=== PATIENT | female | born 1985 | race Caucasian/White ===

== ENCOUNTER 2020-05-19 08:38 | Day surgery (SDC) | payer BC ==
[~2020-05-19 08:38] MED LIST: Bupivacaine 0.5%/EPINEPHrine 1:200,000 50 ML MDV ONE; Dexamethasone 4 MG/ML SDV ONE; Glycopyrrolate 0.2 MG/ML 5 ML MDV ONE; Neostigmine Methylsulfate 1 MG/ML 5 ML Syringe ONE; Ondansetron 4 MG/2 ML SDV ONE; Propofol 200 MG/20 ML SDV ONE; Rocuronium 50 MG/5 ML Vial ONE; Succinylcholine 200 MG/10 ML MDV ONE; fentaNYL 250 MCG/5 ML SDV ONE
[2020-05-19] MEDS ORDERED: Albuterol 8 GM Inhaler INH ONE (09:15)
[2020-05-19] MEDS ORDERED: Acetaminophen 500 MG Tab PO ONE (09:15)
[2020-05-19] MEDS: Dextrose 5%-Lactated Ringers 1,000 ML IV SCH ×3 (09:53→21:05)
[2020-05-19] MEDS ORDERED: Sodium Chloride 0.9% 10 ML ONE (10:20)
[2020-05-19] MEDS ORDERED: cefOXitin 2 GM Vial ONE (10:20)
[2020-05-19] MEDS ORDERED: Ketamine 500 MG/5 ML MDV IV SCH (10:30)
[2020-05-19] MEDS ORDERED: Ketamine 50 MG in Sodium Chloride 0.9% 49.5 ML IV SCH (10:30)
[2020-05-19] MEDS ORDERED: fentaNYL 250 MCG/5 ML SDV ONE (10:43)
[2020-05-19] MEDS ORDERED: Labetalol 20 MG/4 ML Syringe ONE (11:06)
[2020-05-19] MEDS ORDERED: hydrOXYzine HCL 100 MG/2 ML SDV IM ONE (11:35)
[2020-05-19] MEDS ORDERED: fentaNYL 100 MCG/2 ML SDV IVPUSH ONE (11:36)
[2020-05-19] MEDS ORDERED: Albuterol 8 GM Inhaler INH PRN (13:18)
[2020-05-19] MEDS ORDERED: Ondansetron 4 MG/2 ML SDV IVPUSH PRN (14:00)
[2020-05-19] MEDS ORDERED: HYDROmorphone 1 MG/ML Syringe IV PRN (14:00)
[2020-05-19] MEDS: HYDROmorphone 0.5 MG/0.5 ML Syringe IVPUSH PRN ×2 (14:39→17:34)
[2020-05-19] MEDS ORDERED: Pantoprazole 40 MG Vial IV SCH (16:00)
[2020-05-19] MEDS: cefOXitin 2 GM in Sodium Chloride 0.9% 50 ML IV SCH ×2 (16:41→22:28)
[2020-05-19] MEDS: risperiDONE 1 MG Tab PO SCH (20:59)
[2020-05-19] MEDS: Acetaminophen/HYDROcodone 325-5 MG Tab PO PRN (21:04)
[2020-05-20] MEDS: Acetaminophen/HYDROcodone 325-5 MG Tab PO PRN ×2 (03:34→07:54)
[2020-05-20] MEDS: cefOXitin 2 GM in Sodium Chloride 0.9% 50 ML IV SCH (03:35)
[2020-05-20] MEDS: risperiDONE 1 MG Tab PO SCH ×2 (07:54→09:45)
--- NOTE | 2020-05-21 10:39 | DISCH ---
FINAL DIAGNOSES: 1. Biliary dyskinesia. 2. Marked fatty infiltration of liver. SECONDARY DIAGNOSES: 1. History of asthma. 2. History of irritable bowel disorder. 3. Generalized anxiety disorder. OPERATIVE PROCEDURES: Done on 05/19/2020, diagnostic laparoscopy with: 1. Cholecystectomy. 2. Wedge liver biopsy. SUMMARY: This is a 34-year-old presenting with some ongoing discomfort in the right upper quadrant, particularly in the postprandial period. A CCK-stimulated HIDA scan was obtained which showed minimal filling of the gallbladder consistent with an ongoing cholecystitis. On the day of admission, the patient underwent a laparoscopic cholecystectomy. She was also noted to have a marked fatty infiltration of liver. A wedge biopsy of liver was obtained for histologic evaluation as well. Postoperatively, no major problems were noted overnight. She was eating well and switched over to Goree for pain. Labs looked good this morning and she will be discharge to home. Follow up will be with Jennifer Smith at [facility] on 05/29/2020 and she will be on a regular diet. She will be on her usual medications plus Goree 5/325, 1 or 2 tabs q.6 hours p.r.n. pain, #40. /[id number]
--- NOTE | 2020-05-30 14:06 | OR ---
DATE OF PROCEDURE: 05/19/2020 SURGEON: Leobardo Traylor MD PREOPERATIVE DIAGNOSIS: Biliary dyskinesia. POSTOPERATIVE DIAGNOSES: 1. Biliary dyskinesia. 2. Markedly fatty infiltrated liver. OPERATIVE PROCEDURE: Diagnostic laparoscopy with: 1. Cholecystectomy (42112). 2. Wedge biopsy of left lobe of liver (52913). ANESTHESIA: General. INSTRUMENT MAKER AND REPAIRER: Jennifer Smith PA-C INDICATION FOR PROCEDURE: This is a 34-year-old status post several episodes of right upper quadrant discomfort. Further workup included CCK-stimulated HIDA scan which showed a very minimally filling gallbladder consistent with biliary dyskinesia. Plan is to proceed with laparoscopic cholecystectomy. Potential risks including bleeding, infection, injury to underlying viscera such as the common bile duct, possibility of stones migrating into the common bile duct requiring additional treatment for correction were all reviewed, and the patient wishes to proceed. DETAILS OF PROCEDURE: The patient was taken to the operative room and placed in a supine position. After general endotracheal anesthesia was induced, the abdomen was prepped and draped. A transverse subumbilical incision was made and the peritoneal cavity entered under direct vision with an Optiview trocar, inflated to 15 mmHg pressure of CO2. Laparoscope was then reinserted. There were no underlying trocar insertion site injuries seen. Following this, a 12 mm epigastric trocar was placed along with a 5 mm right abdominal trocar and the upper abdomen examined. The patient was noted to have a quite firm and grossly fatty infiltrated liver. Initial attempts at needle biopsy were such that the needle upon its deployment simply was pushing the liver away. Given this, we elected at this point to proceed with a wedge biopsy using Harmonic Scalpel of the lower medial edge of the left lobe of the liver, and this specimen was then sent as a separate histologic specimen. The gallbladder was quite distended and edematous and retracted anteriorly and laterally. Dissection began on the gallbladder neck, continued around the gallbladder neck and cystic duct junction. Once that area along with the adjacent cystic artery were well delineated, they both were taken with surgical newton and the gallbladder then dissected off the gallbladder bed using Harmonic scalpel and delivered through the epigastric trocar site and noted to contain some sludge and small stones within it. The area of dissection was then inspected, no bleeding or bile leaks were seen. Jadiel- Bauer drain was taken out through the right lateral trocar site and positioned adjacent to the area of the liver biopsy and gallbladder bed. The trocars were then sequentially removed and the peritoneal cavity deflated. The fascia at the level of 12 mm sites was closed with 0 Vicryl stitch and the skin with 4-0 Vicryl subcuticular stitch. Bilateral transversus abdominis plane blocks had also been placed and wound was anesthetized with some 0.5% Marcaine. The patient was taken to the recovery room in satisfactory condition. Physician rehab care assistant, Jennifer Smith, played an essential role in assisting in this case, helping to position the patient, retract structures as needed, as well as suturing and cutting sutures when indicated. Her presence improved patient safety and decreased operative time. Leobardo Traylor MD /[id number]
== END 2020-05-20 09:30 | disposition home or self-care (01) ==
LOC: JP.SDS 08:38 → JP.MS 11:25 → JP.SDS 05-20 09:30
PROVIDERS: ATTEND Surgery
DX: K81.1 Chronic cholecystitis (principal); K73.9 Chronic hepatitis, unspecified; U07.1 COVID-19; R19.7 Diarrhea, unspecified; F17.210 Nicotine dependence, cigarettes, uncomplicated; K76.0 Fatty (change of) liver, not elsewhere classified; F41.1 Generalized anxiety disorder; E66.9 Obesity, unspecified; Z87.19 Personal history of other diseases of the digestive system; Z79.899 Other long term (current) drug therapy
CPT/HCPCS: 36415; 80053; 81025; 82247; 83735; 84075; 84100; 85027; 88304; 88307; A9270-GY; C9113; J0171; J0330; J0694; J1100; J1170; J2405; J2704; J2710; J2795; J3010; J3410; J3490; J7050; J7121; U0002

== ENCOUNTER 2020-12-18 08:31 | Emergency (ER) | payer BC ==
[2020-12-18] MEDS ORDERED: Albuterol/Ipratropium 3.0-0.5 MG/3 ML Neb Soln NEB ONE (09:14)
--- NOTE | 2020-12-18 09:20 | EDM.PDOC ---
ED HPI GENERAL MEDICAL PROBLEM - General Chief Complaint: Respiratory Problem Stated Complaint: SHORTNESS OF BREATH, HIGH PULSE Time Seen by Provider: 12/18/20 09:06 Source of Information: Reports: Patient, Family, RN Notes Reviewed History Limitations: Reports: No Limitations - History of Present Illness INITIAL COMMENTS - FREE TEXT/NARRATIVE: 34-year-old female presents emergency department with a complaint of shortness of breath, she states she has been short of breath for about a week she has had high pulses well dry cough. Does take risperidone for her mental health. Has had problems with potassium in the past which has influenced her breathing. No fevers no nausea vomiting no chest pain. - Related Data Allergies Allergy/AdvReac Type Severity Reaction Status Date / Time No Known Allergies Allergy Verified 12/18/20 08:44 Home Meds: Home Meds Albuterol Sulfate [Proair Hfa] 1 - 2 puff IH Q4H PRN 05/17/20 [History] Multivitamin [Multi-Vitamin Daily] 1 each PO DAILY 05/17/20 [History] Potassium Chloride 20 meq PO BIDMEALS 05/17/20 [History] risperiDONE [Risperdal] 2 mg PO BID 05/17/20 [History] Pantoprazole Sodium [Protonix] 20 mg PO BID 12/18/20 [History] Past Medical History Respiratory History: Reports: Other (See Below) Other Respiratory History: difficulty breathing with masks Gastrointestinal History: Reports: Cholelithiasis, GERD PROJECT CONTROL ANALYST History: Reports: Polycystic Ovaries Psychiatric History: Reports: Bipolar - Infectious Disease History Infectious Disease History: Reports: Other (See Below) Other Infectious Disease History: was COVID positive april - Past Surgical History Respiratory Surgical History: Reports: None GI Surgical History: Reports: Cholecystectomy Other Female Surgeries/Procedures: left tube removed when 24 Social & Family History - Family History Family Medical History: No Pertinent Family History - Tobacco Use Tobacco Use Status *Q: Current Every Day Tobacco User Years of Tobacco use: 23 Packs/Tins Daily: 0.5 - Caffeine Use Caffeine Use: Reports: Coffee, Soda - Recreational Drug Use Recreational Drug Use: No ED ROS GENERAL - Review of Systems Review Of Systems: See Below Constitutional: Reports: No Symptoms HEENT: Reports: No Symptoms Respiratory: Reports: Shortness of Breath, Cough Cardiovascular: Reports: No Symptoms GI/Abdominal: Reports: No Symptoms : Reports: No Symptoms Musculoskeletal: Reports: No Symptoms ED EXAM, GENERAL - Physical Exam Exam: See Below Exam Limited By: No Limitations General Appearance: Alert, WD/WN, No Apparent Distress Respiratory/Chest: No Respiratory Distress, Lungs Clear, Normal Breath Sounds, No Accessory Muscle Use, Chest Non-Tender Cardiovascular: Regular Rate, Rhythm, No Murmur GI/Abdominal: Soft, Non-Tender Course - Vital Signs Last Recorded V/S: Last Vital Signs Temp 98.0 F 12/18/20 08:43 Pulse 94 12/18/20 09:31 Resp 18 12/18/20 08:43 BP 119/50 L 12/18/20 08:43 Pulse Ox 97 12/18/20 08:43 - Orders/Labs/Meds Orders: Active Orders 24 hr Category Date Time Status RT Aerosol Therapy [RC] ASDIRECTED Care 12/18/20 09:14 Active Chest 2V [CR] Urgent Exams 12/18/20 09:12 Taken Labs: Laboratory Tests 12/18/20 12/18/20 12/18/20 Range/Units 09:27 09:27 09:27 WBC 6.9 (4.5-11.0) K/uL RBC 3.53 (3.30-5.50) M/uL Hgb 9.6 L (12.0-15.0) g/dL Hct 30.6 L (36.0-48.0) % MCV 87 (80-98) fL MCH 27 (27-31) pg MCHC 31 L (32-36) % Plt Count 336 (150-400) K/uL Neut % (Auto) 53.9 (36-66) % Lymph % (Auto) 29.8 (24-44) % [place] % (Auto) 10.5 H (2-6) % Eos % (Auto) 5.5 H (2-4) % Baso % (Auto) 0.3 (0-1) % D-Dimer, Quantitative 329.26 (0.0-500.0) ng/mL Sodium 143 (140-148) mmol/L Potassium 3.6 (3.6-5.2) mmol/L Chloride 109 H (100-108) mmol/L Carbon Dioxide 18 L (21-32) mmol/L Anion Gap 19.6 H (5.0-14.0) mmol/L BUN 20 H D (7-18) mg/dL Creatinine 0.9 (0.6-1.0) mg/dL Est Cr Clr Drug Dosing 69.00 mL/min Estimated GFR (MDRD) > 60 (>60) Glucose 96 (74-106) mg/dL Lactic Acid (0.4-2.0) mmol/L Calcium 8.4 L (8.5-10.1) mg/dL Total Bilirubin 0.3 D (0.2-1.0) mg/dL AST 58 H D (15-37) U/L ALT 30 (12-78) U/L Alkaline Phosphatase 71 (46-116) U/L Troponin I < 0.017 (0.000-0.056) ng/mL Total Protein 6.4 (6.4-8.2) g/dL Albumin 3.0 L (3.4-5.0) g/dL Globulin 3.4 (2.3-3.5) g/dL Albumin/Globulin Ratio 0.9 L (1.2-2.2) 12/18/20 Range/Units 09:27 WBC (4.5-11.0) K/uL RBC (3.30-5.50) M/uL Hgb (12.0-15.0) g/dL Hct (36.0-48.0) % MCV (80-98) fL MCH (27-31) pg MCHC (32-36) % Plt Count (150-400) K/uL Neut % (Auto) (36-66) % Lymph % (Auto) (24-44) % [place] % (Auto) (2-6) % Eos % (Auto) (2-4) % Baso % (Auto) (0-1) % D-Dimer, Quantitative (0.0-500.0) ng/mL Sodium (140-148) mmol/L Potassium (3.6-5.2) mmol/L Chloride (100-108) mmol/L Carbon Dioxide (21-32) mmol/L Anion Gap (5.0-14.0) mmol/L BUN (7-18) mg/dL Creatinine (0.6-1.0) mg/dL Est Cr Clr Drug Dosing mL/min Estimated GFR (MDRD) (>60) Glucose (74-106) mg/dL Lactic Acid 0.6 (0.4-2.0) mmol/L Calcium (8.5-10.1) mg/dL Total Bilirubin (0.2-1.0) mg/dL AST (15-37) U/L ALT (12-78) U/L Alkaline Phosphatase (46-116) U/L Troponin I (0.000-0.056) ng/mL Total Protein (6.4-8.2) g/dL Albumin (3.4-5.0) g/dL Globulin (2.3-3.5) g/dL Albumin/Globulin Ratio (1.2-2.2) Meds: Medications Discontinued Medications Generic Name Dose Route Start Last Admin Trade Name Freq PRN Reason Stop Dose Admin Albuterol/Ipratropium 3 ml 12/18/20 09:14 12/18/20 09:30 Albuterol/Ipratropium 3.0-0.5 Mg/3 Ml Neb Soln NEB 12/18/20 09:15 3 ml ONETIME ONE Administration Departure - Departure Time of Disposition: 10:41 Disposition: Home, Self-Care 01 Condition: Fair Clinical Impression: Dyspnea Qualifiers: Dyspnea type: shortness of breath Qualified Code(s): R06.02 - Shortness of breath; R06.00 - Dyspnea, unspecified; R06.01 - Orthopnea - Discharge Information Instructions: Shortness of Breath, Adult, [id number] Referrals: Wale Tripp LIGHT ARMORED RECONNAISSANCE OFFICER [Primary Care Provider] - Forms: ED Department Discharge Additional Instructions: Please keep your follow-up appointment in the clinic this morning Sepsis Event Note (ED) - Evaluation Sepsis Screening Result: No Definite Risk - Focused Exam Vital Signs: Vital Signs Temp Pulse Resp BP Pulse Ox 12/18/20 09:31 94 12/18/20 08:43 98.0 F 101 H 18 119/50 L 97 - My Orders Last 24 Hours: My Active Orders 12/18/20 09:12 Chest 2V [CR] Urgent 12/18/20 09:14 RT Aerosol Therapy [RC] ASDIRECTED - Assessment/Plan Last 24 Hours: My Active Orders 12/18/20 09:12 Chest 2V [CR] Urgent 12/18/20 09:14 RT Aerosol Therapy [RC] ASDIRECTED Plan: Assessment Acuity = acute Site and laterality = dyspnea Etiology = unknown suspicious for risperidone involvement Manifestations = none Location of injury = Home Lab values = CBC reveals a hemoglobin 9.6 consistent normochromic anemia CMP unremarkable lactic acid normal 0.6 D-dimer was normal 329 troponin was negative chest x-ray I did review films myself I cannot appreciate any acute process, the official read from radiology is pending Plan She does have follow-up appointment with her primary care at 11:00 today will have her follow-up for further evaluation consider dosing changing in risperidone This note was dictated using [employer] voice recognition software please call with any questions on syntax or grammar.
--- NOTE | 2020-12-18 11:46 | CR ---
CHEST: 2 view CLINICAL HISTORY:SOB COMPARISON:None FINDINGS: The heart size, pulmonary vascularity and hilar structures are normal. No infiltrate effusion or pneumothorax is seen. IMPRESSION: No acute cardiopulmonary process.
== END 2020-12-18 11:15 | disposition home or self-care (01) ==
LOC: JP.ED 08:31
DX: R06.02 Shortness of breath (principal); K21.9 Gastro-esophageal reflux disease without esophagitis; Z72.0 Tobacco use; Z79.899 Other long term (current) drug therapy
CPT/HCPCS: 36415; 71046; 71046-26; 80053; 83605; 84484; 85025; 85379; 94640; 99285-25; J7620-GY

== ENCOUNTER 2022-04-01 09:49 | Emergency (ER) | payer BC ==
[2022-04-01] MEDS ORDERED: cefTRIAXone 2 GM in Sodium Chloride 0.9% 50 ML IV ONE (11:30)
[2022-04-01] MEDS ORDERED: Iopamidol 612 MG/ML 100 ML Bottle IV SCH (11:45)
[2022-04-01] MEDS ORDERED: Sodium Chloride 0.9% 75 ML IV SCH (11:45)
[2022-04-01] MEDS ORDERED: Acetaminophen 500 MG Tab PO ONE (13:10)
[2022-04-01] MEDS ORDERED: Ketorolac 30 MG/ML SDV IVPUSH ONE (13:10)
== END 2022-04-01 13:50 | disposition home or self-care (01) ==
LOC: JP.ED 09:49
DX: K04.7 Periapical abscess without sinus (principal); K21.9 Gastro-esophageal reflux disease without esophagitis; F17.210 Nicotine dependence, cigarettes, uncomplicated; Z79.899 Other long term (current) drug therapy; Z90.49 Acquired absence of other specified parts of digestive tract
CPT/HCPCS: 36415; 70487; 85025; 96365; 96375; 99283; A9270; J0696; J1885; J3490; Q9967

== ENCOUNTER 2023-10-23 15:29 | Inpatient (IN) | payer BC, OTHER ==
[2023-10-23] MEDS ORDERED: Polyethylene Glycol 3350 Powder 17 GM Packet PO PRN (15:55)
[2023-10-23] MEDS ORDERED: Sodium Chloride 0.9% 10 ML Syringe FLUSH PRN (15:55)
[2023-10-23] MEDS: Potassium Chloride 20 MEQ Tab.ER PO ONE ×4 (16:18→23:39)
[2023-10-23] MEDS: Sodium Chloride 0.9% 1,000 ML IV SCH (16:45)
[2023-10-23] MEDS: Potassium Chloride 10 MEQ in Premix Bag 1 BAG IV SCH ×2 (17:00→22:36)
[2023-10-23] MEDS: Acetaminophen 325 MG Tab PO PRN (18:17)
[2023-10-23] MEDS ORDERED: Albuterol 6.7 GM Inhaler INH PRN (18:36)
[2023-10-23 19:22] LABS: CORONAVIRUS COVID-19 NAA NEGATIVE (NEGATIVE); INFLUENZA A NAA NEGATIVE (NEGATIVE); INFLUENZA B NAA NEGATIVE (NEGATIVE); RESPIRATORY SYNCYTIAL VIR NAA NEGATIVE (NEGATIVE)
[2023-10-23] MEDS: risperiDONE 1 MG Tab PO SCH (21:25)
[2023-10-23] MEDS: Sucralfate 1 GM Tab PO SCH (21:25)
[2023-10-23 21:50] LABS: CREATININE 1.4 mg/dL (0.6-1.0); EST CRCL DRUG DOSING (CG) 43.09 mL/min
[2023-10-23 21:51] LABS: POTASSIUM,K 1.3 mmol/L (3.6-5.2)
[2023-10-23 21:52] LABS: ANION GAP 22.3 mmol/L (5.0-14.0)
[2023-10-23] MEDS: NS + KCl 20mEq/L 1,000 ML IV SCH (22:34)
[2023-10-23] MEDS ORDERED: POTASSIUM CHLORIDE IV SCH (23:00)
[2023-10-24 01:26] LABS: CALCIUM 8.4 mg/dL (8.5-10.1); CREATININE 1.2 mg/dL (0.6-1.0); EST CRCL DRUG DOSING (CG) 50.27 mL/min
[2023-10-24 01:28] LABS: ANION GAP 20.5 mmol/L (5.0-14.0); POTASSIUM,K 1.5 mmol/L (3.6-5.2)
[2023-10-24] MEDS: Potassium Chloride 20 MEQ Tab.ER PO ONE ×9 (01:37→22:40)
[2023-10-24 04:57] LABS: HEMATOCRIT 23.6 % (34.3-46.0); HEMOGLOBIN 7.9 g/dL (11.2-15.5); MEAN CORPUSCULAR HEMOGLOBIN 22.6 pg (31.6-35.5); MEAN CORPUSCULAR HGB CONC 33.5 g/dL (31.6-35.5); RED BLOOD CELL COUNT 3.5 M/uL (3.77-5.24); WHITE BLOOD CELL COUNT,WBC 13.3 K/uL (3.2-11.0)
[2023-10-24 05:13] LABS: MEAN CORPUSCULAR VOLUME 67.4 fL (81.4-99.0)
[2023-10-24 05:36] LABS: A/G RATIO 0.7 (1.2-2.2); ALANINE AMINOTRANSFERASE,ALT 107 U/L (12-78); ALBUMIN 2.4 g/dL (3.4-5.0); ALKALINE PHOSPHATASE 47 U/L (46-116); ASPARTATE AMNIOTRANSFERASE,AST 146 U/L (15-37); BILIRUBIN TOTAL 0.8 mg/dL (0.2-1.0); BLOOD UREA NITROGEN,BUN 11 mg/dL (7-18); C-REACTIVE PROTEIN 1.21 mg/dL (<0.50); CALCIUM 8.2 mg/dL (8.5-10.1); CHLORIDE,CL 114 mmol/L (100-108); CREATININE 1.2 mg/dL (0.6-1.0); EST CRCL DRUG DOSING (CG) 50.27 mL/min; ESTIMATED GFR 59 mL/min (>60); GLUCOSE RANDOM 89 mg/dL (74-106); MAGNESIUM 2.4 mg/dL (1.8-2.4); PROTEIN TOTAL,TP 5.8 g/dL (6.4-8.2); SODIUM,NA 146 mmol/L (140-148)
[2023-10-24 05:52] LABS: ANION GAP 19.1 mmol/L (5.0-14.0); POTASSIUM,K 2.1 mmol/L (3.6-5.2)
[2023-10-24 05:53] LABS: CARBON DIOXIDE,CO2 15 mmol/L (21-32)
[2023-10-24] MEDS ORDERED: POTASSIUM CHLORIDE IV SCH (06:00)
[2023-10-24] MEDS: Potassium Chloride 10 MEQ in Premix Bag 1 BAG IV SCH ×3 (07:15→22:40)
[2023-10-24 09:16] LABS: CALCIUM 8.2 mg/dL (8.5-10.1); CREATININE 1.2 mg/dL (0.6-1.0); EST CRCL DRUG DOSING (CG) 50.27 mL/min
[2023-10-24 09:19] LABS: ANION GAP 19.5 mmol/L (5.0-14.0); POTASSIUM,K 2.5 mmol/L (3.6-5.2)
[2023-10-24] MEDS: Dextrose 5% in Water 1,000 ML IV SCH (09:47)
[2023-10-24 16:16] LABS: CALCIUM 8.4 mg/dL (8.5-10.1); CREATININE 0.9 mg/dL (0.6-1.0); EST CRCL DRUG DOSING (CG) 68.57 mL/min
[2023-10-24 16:18] LABS: ANION GAP 16.5 mmol/L (5.0-14.0); POTASSIUM,K 2.5 mmol/L (3.6-5.2)
[2023-10-24] MEDS: Nicotine 21 MG/24 Hr Patch TRDERM SCH (18:36)
[2023-10-24 22:16] LABS: CALCIUM 8.3 mg/dL (8.5-10.1); CREATININE 0.8 mg/dL (0.6-1.0); EST CRCL DRUG DOSING (CG) 77.14 mL/min
[2023-10-24 22:20] LABS: ANION GAP 14.8 mmol/L (5.0-14.0); POTASSIUM,K 2.8 mmol/L (3.6-5.2)
[2023-10-24] MEDS ORDERED: Potassium Chloride 10 MEQ in Premix Bag 1 BAG IV SCH (23:00)
[2023-10-25] MEDS: Potassium Chloride 20 MEQ Tab.ER PO ONE ×3 (00:45→17:20)
[2023-10-25 06:00] LABS: HEMATOCRIT 23.2 % (34.3-46.0); HEMOGLOBIN 7.6 g/dL (11.2-15.5); MEAN CORPUSCULAR HEMOGLOBIN 22.6 pg (31.6-35.5); MEAN CORPUSCULAR HGB CONC 32.8 g/dL (31.6-35.5); RED BLOOD CELL COUNT 3.36 M/uL (3.77-5.24); WHITE BLOOD CELL COUNT,WBC 9.5 K/uL (3.2-11.0)
[2023-10-25 06:29] LABS: ALANINE AMINOTRANSFERASE,ALT 124 U/L (12-78); ALBUMIN 2.2 g/dL (3.4-5.0); ALKALINE PHOSPHATASE 49 U/L (46-116); ASPARTATE AMNIOTRANSFERASE,AST 151 U/L (15-37); BILIRUBIN TOTAL 0.2 mg/dL (0.2-1.0); BLOOD UREA NITROGEN,BUN 5 mg/dL (7-18); CALCIUM 8.4 mg/dL (8.5-10.1); CARBON DIOXIDE,CO2 17 mmol/L (21-32); CHLORIDE,CL 112 mmol/L (100-108); CREATININE 0.8 mg/dL (0.6-1.0); EST CRCL DRUG DOSING (CG) 77.14 mL/min; ESTIMATED GFR 97 mL/min (>60); GLUCOSE RANDOM 108 mg/dL (74-106); POTASSIUM,K 3.5 mmol/L (3.6-5.2); PROTEIN TOTAL,TP 5.6 g/dL (6.4-8.2); SODIUM,NA 142 mmol/L (140-148)
[2023-10-25 06:30] LABS: A/G RATIO 0.7 (1.2-2.2); ANION GAP 16.5 mmol/L (5.0-14.0)
[2023-10-25 06:33] LABS: CREATINE KINASE,CK 3380 U/L (26-192)
[2023-10-25 08:11] LABS: RETICULOCYTE COUNT PERCENT 3.13 % (0.03-0.11)
[2023-10-25 08:28] LABS: IRON,FE 27 ug/dL (50-170); PERCENT FE SATURATION 11 % (20-55); TOTAL IRON BINDING CAPACITY 254 ug/dl (250-450)
[2023-10-25 08:43] LABS: FOLIC ACID 10.3 ng/ml (8.6-58.9)
[2023-10-25] MEDS: Sodium Ferric Gluconate Cmplex 250 MG in Sodium Chloride 0.9% 100 ML IV ONE (10:16)
[2023-10-25 15:23] LABS: ANION GAP 16.7 mmol/L (5.0-14.0); CALCIUM 8.9 mg/dL (8.5-10.1); CREATININE 0.7 mg/dL (0.6-1.0); EST CRCL DRUG DOSING (CG) 88.16 mL/min; POTASSIUM,K 3.7 mmol/L (3.6-5.2)
[2023-10-25] MEDS: Ferrous Sulfate 325 MG Tab PO SCH (17:20)
[2023-10-25] MEDS: Ondansetron 4 MG/2 ML SDV IV PRN (18:13)
[2023-10-26 05:11] LABS: HEMATOCRIT 23.7 % (34.3-46.0); HEMOGLOBIN 7.6 g/dL (11.2-15.5); MEAN CORPUSCULAR HEMOGLOBIN 22.7 pg (31.6-35.5); MEAN CORPUSCULAR HGB CONC 32.1 g/dL (31.6-35.5); MEAN CORPUSCULAR VOLUME 70.7 fL (81.4-99.0); RED BLOOD CELL COUNT 3.35 M/uL (3.77-5.24); WHITE BLOOD CELL COUNT,WBC 8.9 K/uL (3.2-11.0)
[2023-10-26 05:37] LABS: A/G RATIO 0.6 (1.2-2.2); ALANINE AMINOTRANSFERASE,ALT 117 U/L (12-78); ALBUMIN 2.1 g/dL (3.4-5.0); ALKALINE PHOSPHATASE 47 U/L (46-116); ANION GAP 14.9 mmol/L (5.0-14.0); ASPARTATE AMNIOTRANSFERASE,AST 116 U/L (15-37); BILIRUBIN TOTAL < 0.1 mg/dL (0.2-1.0); BLOOD UREA NITROGEN,BUN 4 mg/dL (7-18); CALCIUM 8.7 mg/dL (8.5-10.1); CARBON DIOXIDE,CO2 21 mmol/L (21-32); CHLORIDE,CL 112 mmol/L (100-108); CREATINE KINASE,CK 1777 U/L (26-192); CREATININE 0.8 mg/dL (0.6-1.0); EST CRCL DRUG DOSING (CG) 77.14 mL/min; ESTIMATED GFR 97 mL/min (>60); GLUCOSE RANDOM 96 mg/dL (74-106); POTASSIUM,K 2.9 mmol/L (3.6-5.2); PROTEIN TOTAL,TP 5.4 g/dL (6.4-8.2); SODIUM,NA 145 mmol/L (140-148)
[2023-10-26] MEDS: Potassium Chloride 20 MEQ Tab.ER PO ONE ×4 (05:56→20:05)
[2023-10-26] MEDS: Potassium Chloride 10 MEQ in Premix Bag 1 BAG IV SCH ×2 (05:57→16:09)
[2023-10-26] MEDS: Sodium Ferric Gluconate Cmplex 250 MG in Sodium Chloride 0.9% 100 ML IV ONE (10:16)
[2023-10-26] MEDS: Pantoprazole 40 MG Vial IVPUSH SCH (14:00)
[2023-10-26 14:17] LABS: POTASSIUM,URINE RANDOM 75.2 mmol/L (12-62)
[2023-10-26] MEDS: Potassium Chloride 20 MEQ Tab.ER ONE (15:36)
[2023-10-27 05:44] LABS: HEMATOCRIT 25.2 % (34.3-46.0); HEMOGLOBIN 7.8 g/dL (11.2-15.5); MEAN CORPUSCULAR HEMOGLOBIN 22.5 pg (31.6-35.5); MEAN CORPUSCULAR VOLUME 72.8 fL (81.4-99.0); RED BLOOD CELL COUNT 3.46 M/uL (3.77-5.24)
[2023-10-27 06:03] LABS: CALCIUM 8.5 mg/dL (8.5-10.1); CREATININE 0.8 mg/dL (0.6-1.0); EST CRCL DRUG DOSING (CG) 77.14 mL/min; POTASSIUM,K 3.7 mmol/L (3.6-5.2)
[2023-10-27 06:16] LABS: ANION GAP 16.7 mmol/L (5.0-14.0)
[2023-10-27] MEDS: Iopamidol 612 MG/ML 100 ML Bottle IV ONE (10:55)
[2023-10-27] MEDS: Sodium Chloride 0.9% 10 ML Syringe FLUSH ONE (10:55)
[2023-10-27] MEDS: Sodium Chloride 0.9% 100 ML IV ONE (10:56)
[2023-10-27] MEDS: Potassium Chloride 20 MEQ Tab.ER PO ONE ×3 (14:17→20:04)
[2023-10-27] MEDS: Pantoprazole 40 MG Tab.CR PO SCH (17:30)
[2023-10-28 04:50] LABS: HEMATOCRIT 26.2 % (34.3-46.0); HEMOGLOBIN 8.1 g/dL (11.2-15.5); MEAN CORPUSCULAR HEMOGLOBIN 22.8 pg (31.6-35.5); MEAN CORPUSCULAR HGB CONC 30.9 g/dL (31.6-35.5); MEAN CORPUSCULAR VOLUME 73.8 fL (81.4-99.0); RED BLOOD CELL COUNT 3.55 M/uL (3.77-5.24); WHITE BLOOD CELL COUNT,WBC 10.2 K/uL (3.2-11.0)
[2023-10-28 05:20] LABS: A/G RATIO 0.6 (1.2-2.2); ALANINE AMINOTRANSFERASE,ALT 93 U/L (12-78); ALBUMIN 2.2 g/dL (3.4-5.0); ALKALINE PHOSPHATASE 53 U/L (46-116); ASPARTATE AMNIOTRANSFERASE,AST 46 U/L (15-37); BILIRUBIN TOTAL 0.2 mg/dL (0.2-1.0); BLOOD UREA NITROGEN,BUN 7 mg/dL (7-18); CARBON DIOXIDE,CO2 24 mmol/L (21-32); CHLORIDE,CL 110 mmol/L (100-108); CREATININE 0.8 mg/dL (0.6-1.0); EST CRCL DRUG DOSING (CG) 77.14 mL/min; ESTIMATED GFR 97 mL/min (>60); GLUCOSE RANDOM 90 mg/dL (74-106); POTASSIUM,K 3.4 mmol/L (3.6-5.2); PROTEIN TOTAL,TP 5.8 g/dL (6.4-8.2); SODIUM,NA 145 mmol/L (140-148)
[2023-10-28 05:37] LABS: ANION GAP 14.4 mmol/L (5.0-14.0)
[2023-10-28] MEDS ORDERED: Potassium Chloride 20 MEQ Tab.ER PO ONE (08:00)
[2023-10-28] MEDS: Potassium Chloride 20 MEQ Tab.ER PO ONE (10:14)
[2023-10-28 18:02] LABS: URINE OSMOLALITY 341 mOsm/kg (50-800)
[2023-10-28 18:03] LABS: OSMOLALITY 291 mOsm/kg (280-303)
[2023-10-28 19:16] LABS: CREATININE, URINE - PER VOLUME 71 mg/dL; HOURS COLLECTED Random hr; TOTAL PROTEIN, URN-PER VOLUME 31 mg/dL; TOTAL VOLUME Random mL; UR TOTAL PROT/CREATININE RATIO 437 mg/g (10-107)
[2023-10-28 21:01] LABS: CORTISOL,SERUM 19.2 ug/dL
[2023-10-28 23:23] LABS: ALDOSTERONE 3.2 ng/dL
[2023-10-29 01:23] LABS: TISSUE TRANSGLUTAMINAS TTG,IGA <1.02 FLU (0.00-4.99)
== END 2023-10-28 12:56 | disposition home or self-care (01) | DRG 641 ==
LOC: JP.ICU 15:29
PROVIDERS: ADMIT Hospitalist; ATTEND Internal Medicine
DX: E87.6 Hypokalemia (principal); N17.9 Acute kidney failure, unspecified; M62.82 Rhabdomyolysis; E87.20 Acidosis, unspecified; D50.8 Other iron deficiency anemias; K52.9 Noninfective gastroenteritis and colitis, unspecified; K90.0 Celiac disease; E86.0 Dehydration; K21.9 Gastro-esophageal reflux disease without esophagitis; F31.9 Bipolar disorder, unspecified; Z86.16 Personal history of COVID-19; Z79.899 Other long term (current) drug therapy
CPT/HCPCS: 0241U; 36415; 74177; 74177-26; 80048; 80053; 82088; 82436; 82533; 82550; 82570; 82607; 82728; 82746; 83550; 83615; 83735; 83930; 83935; 84132; 84133; 84156; 84300; 85027; 85045; 86140; 86364; 87046; 87493; 87899; 89055; 99222; 99231; 99232; 99239; A9270-GY; C9113; J2405; J2916; J3480; J3490; J7030; J7060; Q9967

== ENCOUNTER 2023-11-12 07:18 | Day surgery (SDC) | payer OTHER ==
[2023-11-12] MEDS ORDERED: Propofol 200 MG/20 ML SDV ONE (07:26)
[2023-11-12] MEDS ORDERED: Midazolam 1 MG/ML 2 ML SDV ONE (07:26)
[2023-11-12] MEDS ORDERED: fentaNYL 50 MCG/ML SDV ONE (07:26)
[2023-11-12 07:47] LABS: HEMATOCRIT 33.2 % (34.3-46.0); HEMOGLOBIN 10.2 g/dL (11.2-15.5); MEAN CORPUSCULAR HEMOGLOBIN 23.7 pg (31.6-35.5); MEAN CORPUSCULAR HGB CONC 30.7 g/dL (31.6-35.5); MEAN CORPUSCULAR VOLUME 77.2 fL (81.4-99.0); RED BLOOD CELL COUNT 4.3 M/uL (3.77-5.24); WHITE BLOOD CELL COUNT,WBC 8.2 K/uL (3.2-11.0)
[2023-11-12 08:06] LABS: ANION GAP 12.5 mmol/L (5.0-14.0); CALCIUM 9.9 mg/dL (8.5-10.1); CREATININE 0.7 mg/dL (0.6-1.0); EST CRCL DRUG DOSING (CG) 86.18 mL/min; MAGNESIUM 1.4 mg/dL (1.8-2.4); PHOSPHORUS 4.2 mg/dL (2.5-4.9); POTASSIUM,K 3.6 mmol/L (3.6-5.2)
[2023-11-12] MEDS: Magnesium Sulfate/Water 2 GM in Premix Bag 1 BAG IV ONE (08:49)
[2023-11-12] MEDS: Lactated Ringers 1,000 ML IV SCH (08:49)
== END 2023-11-12 10:42 | disposition home or self-care (01) ==
LOC: JP.SDS 07:18
PROVIDERS: ATTEND Student in an Organized Health Care Education/Training Program
DX: K29.50 Unspecified chronic gastritis without bleeding (principal); K44.9 Diaphragmatic hernia without obstruction or gangrene; K21.00 Gastro-esophageal reflux disease with esophagitis, without bleeding; D50.9 Iron deficiency anemia, unspecified; E78.5 Hyperlipidemia, unspecified; F41.9 Anxiety disorder, unspecified; F31.9 Bipolar disorder, unspecified; F17.200 Nicotine dependence, unspecified, uncomplicated; Z88.5 Allergy status to narcotic agent
CPT/HCPCS: 36415; 43239; 80048; 83735; 84100; 84703; 85027; J2250; J2704; J3010; J3475; J7120; 88305; 88313; 88341; 88342

== ENCOUNTER 2024-03-19 06:56 | Day surgery (SDC) | payer OTHER ==
[2024-03-19] MEDS ORDERED: Midazolam 1 MG/ML 2 ML SDV ONE (07:10)
[2024-03-19] MEDS ORDERED: Propofol 200 MG/20 ML SDV ONE (07:10)
[2024-03-19] MEDS ORDERED: fentaNYL 50 MCG/ML SDV ONE (07:10)
[2024-03-19] MEDS: Sodium Chloride 0.9% 1,000 ML IV SCH (07:26)
== END 2024-03-19 09:24 | disposition home or self-care (01) ==
LOC: JP.SDS 06:56
PROVIDERS: ATTEND Surgery
DX: K26.9 Duodenal ulcer, unspecified as acute or chronic, without hemorrhage or perforation (principal); F41.9 Anxiety disorder, unspecified; F17.200 Nicotine dependence, unspecified, uncomplicated; Z88.5 Allergy status to narcotic agent
CPT/HCPCS: 43235; 81025; J2250; J2704; J3010; J7030

== ENCOUNTER 2024-10-19 06:44 | Day surgery (SDC) | payer OTHER ==
[2024-10-19] MEDS: Lactated Ringers 1,000 ML IV SCH (07:05)
[2024-10-19] MEDS ORDERED: fentaNYL 50 MCG/ML SDV ONE (07:08)
[2024-10-19] MEDS ORDERED: Midazolam 1 MG/ML 2 ML SDV ONE (07:08)
[2024-10-19] MEDS ORDERED: Propofol 200 MG/20 ML SDV ONE (07:09)
== END 2024-10-19 09:19 | disposition home or self-care (01) ==
LOC: JP.SDS 06:44
PROVIDERS: ATTEND Surgery
DX: R11.10 Vomiting, unspecified (principal); F17.200 Nicotine dependence, unspecified, uncomplicated; Z88.5 Allergy status to narcotic agent
CPT/HCPCS: 00731; 43239; 81025; 87081; J2250; J2704; J3010; J7120